=== PATIENT | female | born 1960 | race African-American/Black ===

== ENCOUNTER 2019-04-27 12:34 | Emergency (ER) | payer OTHER ==
[2019-04-27 12:51] VITALS: BP 128/80; PULSE 95; RESP 20; TEMP 98
--- NOTE | 2019-04-27 13:16 | XR ---
EXAMINATION TYPE: XR foot complete RT DATE OF EXAM: 04/27/2019 CLINICAL HISTORY: Right foot pain after kicking injury TECHNIQUE: Frontal, lateral, and oblique images of the right foot are obtained. COMPARISON: None FINDINGS: There is a questionable subtle hairline fracture plantar surface of the base of the distal first phalanx with intra-articular extension that is not comminuted and nondisplaced seen on a singl e view only. The joint spaces in the right foot appear within normal limits. The overlying soft tis aster appears unremarkable. IMPRESSION: Questionable nondisplaced, noncomminuted intra-articular hairline fracture of the base of the first distal phalanx at the plantar surface. Correlate with point tenderness as this is seen on a single view only.
--- NOTE | 2019-04-27 13:50 | ED ---
Lower Extremity Injury HPI - General Chief Complaint: Extremity Injury, Lower Stated Complaint: Foot injury Time Seen by Provider: 04/27/19 13:15 Source: patient, RN notes reviewed, old records reviewed Mode of arrival: wheelchair Limitations: no limitations - History of Present Illness Initial Comments: Patient is a 58-year-old female, she presents today for concern for right dorsum and first metatarsal pain after kicking a bed frame 2 days ago. Patient reports it was an accident. She states she's had some pain with abduction since that time. She reports she did this while she was staying in hotel. Patient states that she has had no other complaints at this time. She reports that she's had no previous problems including foot fractures or sprains before.Patient denies any recent fever, chills, shortness of breath, chest pain, back pain, abdominal pain, nausea vomiting, numbness or tingling, dysuria or hematuria, constipation or diarrhea, headaches or visual changes, or any other current symptoms MD Complaint: foot injury - Related Data Allergies Allergy/AdvReac Type Severity Reaction Status Date / Time No Known Allergies Allergy Verified 04/27/19 12:51 Review of Systems ROS Statement: Those systems with pertinent positive or pertinent negative responses have been documented in the HPI. ROS Other: All systems not noted in ROS Statement are negative. Past Medical History Additional Past Medical History / Comment(s): neck and back herniation History of Any Multi-Drug Resistant Organisms: None Reported Past Surgical History: Tonsillectomy Past Psychological History: No Psychological Hx Reported Smoking Status: Current every day smoker Past Alcohol Use History: None Reported Past Drug Use History: Marijuana General Exam - General Exam Comments Initial Comments: Patient's 58 female, alert and oriented. No distress. Limitations: no limitations General appearance: alert, in no apparent distress Head exam: Present: atraumatic, normocephalic, normal inspection Eye exam: Present: normal appearance, PERRL, EOMI. Absent: scleral icterus, conjunctival injection, periorbital swelling ENT exam: Present: normal exam, mucous membranes moist Neck exam: Present: normal inspection. Absent: tenderness, meningismus, lymphadenopathy Respiratory exam: Present: normal lung sounds bilaterally. Absent: respiratory distress, wheezes, rales, rhonchi, stridor Cardiovascular Exam: Present: regular rate, normal rhythm, normal heart sounds. Absent: systolic murmur, diastolic murmur, rubs, gallop, clicks GI/Abdominal exam: Present: soft, normal bowel sounds. Absent: distended, tenderness, guarding, rebound, rigid Right Knee exam: Present: normal inspection, full ROM Lower Leg exam: Present: normal inspection, full ROM Ankle exam: Present: normal inspection, full ROM Foot/Toe exam: Present: normal inspection, full ROM, tenderness ( tenderness is over first metatarsal), swelling Neurovascular tendon exam: Present: no vascular compromise Gait: observed and normal Back exam: Present: normal inspection Neurological exam: Present: alert, oriented X3, CN II-XII intact Psychiatric exam: Present: normal affect, normal mood Skin exam: Present: warm, dry, intact, normal color. Absent: rash Course Vital Signs 04/27/19 12:47 Temperature 98.0 F Pulse Rate 95 Respiratory 20 Rate Blood Pressure 128/80 O2 Sat by Pulse 98 Oximetry Procedures - Orthopedic Splinting/Casting Injury #1 Side: right Lower Extremity Injury Location: foot Lower Extremity Immobilizer: posterior splint, Josiah wrap, synthetic pre-padded splint Additional Comments: She was reevaluated neurovascularly intact. Medical Decision Making - Medical Decision Making Patient is a 58 rolled female, she presents today for concern for right dorsum foot pain after she kicked a bed frame 2 days ago. X-ray shows concern for intra-articular first metatarsal fracture only seen on one view. Patient was placed in a post posterior splint, advised to follow-up with orthopedic. Given crutches and antiinflammatory medicine for pain. She was her best intact. Patient is agreeable treatment plan will comply. - Radiology Data Radiology results: report reviewed Foot x-ray shows questionable nondisplaced non-comminuted intra-articular hairline fracture of the baseline of the first distal phalanx plantar cervix. Correlate for point tenderness is seen on single view. Disposition Clinical Impression: Foot fracture, right Disposition: HOME SELF-CARE Condition: Good Instructions (If sedation given, give patient instructions): Foot Fracture in Adults (ED) Additional Instructions: Patient has a follow-up with mailing specialist. Remain in the splint until seen by ortho. Patient to use crutches. Motrin or Tylenol for pain. Return to the emergency department if any alarming signs or symptoms occur. Is patient prescribed a controlled substance at d/c from ED?: No Referrals: None,Stated [Primary Care Provider] - 1-2 days Nael Galvan MD [STAFF PHYSICIAN] - 1-2 days Time of Disposition: 13:49
== END 2019-04-27 14:15 | disposition home or self-care (01) ==
LOC: EC 12:34
DX: S92.901A Unspecified fracture of right foot, initial encounter for closed fracture (principal); F17.200 Nicotine dependence, unspecified, uncomplicated; W22.09XA Striking against other stationary object, initial encounter; Y93.89 Activity, other specified; Y92.003 Bedroom of unspecified non-institutional (private) residence as the place of occurrence of the external cause
CPT/HCPCS: 29515; 99284